=== PATIENT | male | born 1955 | race Caucasian/White ===

== ENCOUNTER → 2018-06-13 18:57 | Outpatient (CLI) | payer OTHER | END | disposition home or self-care (01) | LOC: D.SLEEP 18:57 | DX: G47.33 Obstructive sleep apnea (adult) (pediatric) (principal); Z01.812 Encounter for preprocedural laboratory examination ==

== ENCOUNTER → 2018-08-04 07:22 | Outpatient (CLI) | payer OTHER | END | disposition home or self-care (01) | LOC: D.MRI 07:00 | DX: M66.231 Spontaneous rupture of extensor tendons, right forearm (principal) ==

== ENCOUNTER 2018-09-04 07:15 | Day surgery (SDC) | payer OTHER ==
[~2018-09-04] VITALS: Ht 190.5 cm; Wt 104.3 kg
--- NOTE | ~2018-09-04 | OP ---
PATIENT NAME: CHRISSIE BERNABE MEDICAL RECORD: [id number] :59 LOCATION:D.OPS ADMISSION DATE: SURGEON: DALE NAVARRO MD DATE OF OPERATION: 09/04/2018 PREOPERATIVE DIAGNOSIS: Biceps rupture distal of the left along with a medial epicondylitis. POSTOPERATIVE DIAGNOSIS: Biceps rupture distal of the left along with a medial epicondylitis. PROCEDURE: 1. Left distal biceps repair. 2. Cortisone injection into the medial epicondyle. SURGEON: Dale Navarro MD TRUCK FARMER: Juan Antonio Avery APN ANESTHESIA: General. INTRAOPERATIVE COMPLICATIONS: None. SUMMARY OF PATHOLOGIC FINDINGS: The patient did have a tear of the distal biceps tendon in keeping with the MRI. OPERATIVE SUMMARY IN DETAIL: After obtaining the appropriate preoperative orthopedic surgery consent as well as anesthetic consultation, evaluation and clearance, the patient was brought to the operating room and placed on the operating table in supine position. After adequate general laryngeal mask airway was administered, tourniquet was placed in the proximal aspect of the left upper extremity. Left upper extremity was then prepped and draped in routine sterile fashion. The arm was elevated and exsanguinated and tourniquet inflated to 350 mmHg. Curvilinear incision was made over the antecubital fossa. Dissection was carried down with the assistance of Juan Antonio Avery. The biceps tendon was then dissected down and it was found to have some small fibrinous attachment. Clearly, the footprint was torn. The fibrous attachments were then removed and the distal aspect of the biceps tendon was brought out through the wound and measured. At this point, a FiberLoop from [employer] was then utilized to place a double FiberLoop Krackow suture and this was then placed into the [employer] biceps tenodesis button. Having loaded the button, complete visualization of the radial tuberosity was noted again with retraction and dissection under the assistance of Juan Antonio Avery. The tibial tuberosity was drilled as was the distal cortex and then a size 8 reamer was used to perforate the radial tuberosity side. The tendon button was then deployed; however, it did appear to be somewhat caught in the tissues on the contralateral side. For this reason, a small dorsal incision was made. It was carried down very gently and the tibial button was then seated nicely and tied in the appropriate fashion. Having completed this, the wound was copiously irrigated again, closed by Juan Antonio Avery. Sterile dressings were applied. Tourniquet was deflated. The patient was awakened and taken to the recovery room in stable condition. All final needle and sponge counts were correct. TRANSINT:[id number] Voice Confirmation ID: [id number] DOCUMENT ID: [id number] OPERATIVE REPORT [id number] CHRISSIE BERNABE MD, DALE GRAY at 0840 CC: [id number] DICTATION DATE: 09/13/18 1648 PRECISION FARMING COORDINATOR: 09/14/18 0012 [facility] 09/04/18 [id number] [place] [address]
[~2018-09-04 07:15] MED LIST: CENTRUM MEN'S1 EACH PO
[2018-09-04 07:50] VITALS: BP 155/78; Ht 190.5 cm; Wt 104.3 kg
== END 2018-09-04 13:35 | disposition home or self-care (01) ==
LOC: D.OPS 07:15 → D.PAN 08:50 → D.OPS 09:00 → D.PAN 09:00 → D.OPS 09:15 → D.PAN 10:05 → D.OPS 10:05
DX: S46.212A Strain of muscle, fascia and tendon of other parts of biceps, left arm, initial encounter (principal); X58.XXXA Exposure to other specified factors, initial encounter; M77.02 Medial epicondylitis, left elbow

== ENCOUNTER 2019-09-04 05:30 | Day surgery (SDC) | payer OTHER ==
[2019-09-03 13:47] LABS: BASOPHILS 0.4 % (0-2); EOSINOPHILS 2.8 % (0-7); HEMATOCRIT 51.9 % (42.0-54.0); HEMOGLOBIN 18.4 g/dL (13.5-17.5); IMMATURE GRANULOCYTES 0.2 % (0-5); LYMPHOCYTES 25.7 % (15-50); MCH 34.2 pg (26.0-34.0); MCHC 35.5 g/dL (31.0-37.0); MCV 96.5 fL (80.0-100.0); MEAN PLATELET VOLUME 8.8 fL (7.4-10.4); MONOCYTES 8.6 % (2-11); NEUTROPHILS 62.3 % (40-80); PLATELET COUNT 152 10x3/uL (130-400); RBC 5.38 10x6/uL (4.20-6.10); RDW 12.9 % (11.5-14.5); WBC 5.4 10x3/uL (4.8-10.8)
[2019-09-03 14:00] LABS: ANION GAP 10.9 mmol/L (8-16); CALCIUM 8.7 mg/dL (8.5-10.1); CREATININE - SERUM 1.1 mg/dL (0.6-1.3); POTASSIUM - SERUM 3.9 mmol/L (3.5-5.1)
[~2019-09-04] VITALS: Ht 190.5 cm; Wt 102.5 kg
[~2019-09-04 05:30] MED LIST changes: +ASPIRIN EC81 M1 PO; +COLACE100 MG PO; +OMEGA-3100 MG PO; +VITAMIN D5000 UNIT PO; +VITAMIN E200 UNI1 PO; +ZYRTEC10 MG PO
[2019-09-04 06:38] VITALS: BP 143/87; Ht 190.5 cm; Wt 102.5 kg
[2019-09-04] MEDS ORDERED: DILAUDID2 MG PO (09:10)
--- NOTE | 2019-09-04 13:09 | NUR ---
1300 BLADDER SCAN REVEALED [id number] CC. ENCOURAGING PO FLUIDS AND WILL MONITOR
--- NOTE | 2019-09-18 13:37 | OP ---
PATIENT NAME: CHRISSIE BERNABE MEDICAL RECORD: [id number] :59 LOCATION:D[facility] ADMISSION DATE: SURGEON: DMITRI CEDILLO MD DATE OF OPERATION: 09/04/2019 PREOPERATIVE DIAGNOSES: 1. Right inguinal hernia. 2. Ventral hernia. 3. Hypercholesterolemia. POSTOPERATIVE DIAGNOSES: 1. Right inguinal hernia. 2. Ventral hernia. 3. Hypercholesterolemia. PROCEDURE: 1. Ventral hernia repair with 4.[address] mesh. 2. Right inguinal hernia repair with medium PHS mesh. SURGEON: Dmitri Cedillo MD REPORT OF PROCEDURE: The patient's abdomen was prepped and draped in sterile fashion. A semicircular incision was made on the inferior aspect of the umbilicus. Electrocautery was used to dissect through the subcutaneous tissues. We elevated the umbilicus and encountered a hernia sac. This hernia sac was fat containing. We were able to dissect the hernia sac down to the fascial edges and the fascial defect was noted to be a little over 2 cm in greatest diameter. We freed up the fascia above and below and was able to insert a 4.[address] mesh in an underlay fashion and this was sutured into place with 0 Prolenes on all 4 sides. We irrigated out the wound and then closed the fascia transversely overlying this with a running 0 Vicryl. We tacked the umbilicus back down using an interrupted 3-0 Vicryl and the subcutaneous tissues were reapproximated with interrupted 3-0 Vicryls. Then, 10 mL of 0.25% Marcaine plain was infused into the surrounding tissues and the skin incision was closed with running subcutaneous 5-0 Monocryl. We approached the right groin. An oblique incision was then made just above the inguinal ligament. Electrocautery was used to dissect through the subcutaneous tissues to the external oblique fascia. This fascia was opened up to the external ring using electrocautery. The ilioinguinal nerves were found and high ligated. The spermatic cord was elevated and a Goodells was placed around it. The patient was noted to have a direct hernia defect, which was fat containing. We freed this up from the surrounding tissues and was able to push it back down into the abdominal cavity. We opened up the inguinal floor and the preperitoneal space of Retzius. A medium PHS mesh was then inserted and sutured down on all 4 sides using interrupted 0 Vicryl. The wound was irrigated out with normal saline and care was taken to assure there was no sign of any bleeding. The external oblique fascia was then closed with running 2-0 Vicryl, Asia's was closed with interrupted 3-0 Vicryl and the skin was closed with running subcutaneous 5-0 Monocryl. A total of 10 mL of 0.25% Marcaine with epinephrine was infused into the surrounding tissues and the wounds were dressed appropriately. COMPLICATIONS: None. CONDITION: Stable. OPERATIVE REPORT [id number] CHRISSIE BERNABE ANESTHESIA: General endotracheal and local. BLOOD LOSS: Minimal. TRANSINT:[id number] Voice Confirmation ID: [id number] DOCUMENT ID: [id number] DMITRI CEDILLO MD at 1337 CC: ISAAC CARDOZA [id number] DICTATION DATE: 09/04/19 0915 INSTRUMENT REPAIR SUPERVISOR: 09/04/19 1032 [facility] 09/04/19 [id number] [place] [address]
== END 2019-09-04 13:34 | disposition home or self-care (01) ==
LOC: D.OPS 05:30 → D.PAN 07:15 → D.OPS 07:15 → D.PAN 07:30 → D.OPS 07:30
PROVIDERS: ATTEND Surgery
DX: K40.90 Unilateral inguinal hernia, without obstruction or gangrene, not specified as recurrent (principal); K43.9 Ventral hernia without obstruction or gangrene; E78.00 Pure hypercholesterolemia, unspecified